=== PATIENT | male | born 1985 | race Caucasian/White ===

== ENCOUNTER 2016-10-28 10:05 | Emergency (ER) | payer OTHER ==
[~2016-10-28] VITALS: Ht 170.2 cm; Wt 88.5 kg
[2016-10-28] MEDS ORDERED: MOBI7.5T10 PO (10:26)
[2016-10-28] MEDS ORDERED: GABA-283 PO (10:26)
[2016-10-28] MEDS ORDERED: ZANA2CAP PO (10:26)
[2016-10-28] MEDS ORDERED: ROBA750T4 PO (10:26)
[2016-10-28] MEDS ORDERED: DULO30CA PO (10:26)
[2016-10-28 12:12] VITALS: BP 132/82
[2016-10-28] MEDS ORDERED: predniSONE 20 MG TAB PO ONE (12:15)
[2016-10-28] MEDS ORDERED: PRED20TA PO (12:16)
[2016-10-28] MEDS ORDERED: PEPC1TAB4 PO (12:16)
== END 2016-10-28 12:21 | disposition home or self-care (01) ==
LOC: M ED 12:12
DX: L50.1 Idiopathic urticaria (principal); M54.2 Cervicalgia; G89.29 Other chronic pain; F17.210 Nicotine dependence, cigarettes, uncomplicated; Z88.8 Allergy status to other drugs, medicaments and biological substances; Z79.899 Other long term (current) drug therapy